=== PATIENT | male | born 1960 | race Caucasian/White ===

== ENCOUNTER 2017-10-05 19:10 | Emergency (ER) | payer BC ==
[2017-10-05 19:16] VITALS: BP 112/69; BMI 29.1
[2017-10-05] MEDS ORDERED: XYLOCAINE 1 % (PLAIN) ONE (19:39)
[2017-10-05] MEDS ORDERED: NS 1000 ML 1,000 ML ONE (20:03)
[2017-10-05] MEDS ORDERED: DILAUDID INJ ONE (20:04)
[2017-10-05] MEDS ORDERED: DILAUDID INJ IVP ONE (20:04)
--- NOTE | 2017-10-05 20:05 | DR.GENAD ---
HPI - PCP Primary Care Physician: Adan - Complaint/Symptoms Chief Complaint Doctors Comments: Patient presented to the ED with complaint of having a kidney stone and unable to pass. He has a history of recurrent stones since the age of [age]. He states that he dribbles when attempting to urinate. PMY of heart disease stents 1-2 months ago ([place]) and 3-4 stents 4-5 years ago or longer. He takes low dose aspirin and Effient daily Chief Complaint:: Kidney Stone Self Treatment fo Chief Complaint: Flomax, only takes when he gets a kidney stone - Source History Provided: Patient - Mode of Arrival Mode of Arrival: Ambulatory - Timing Onset of Chief Complaint: 09/03/17 PMH - PMH Past Medical History: Yes Past Medical History: Kidney Stones, [place] Past Surgical History: Yes Past Surgical History Comment: x4 stents - Family History History of Family Medical Conditions: No - Social History Does patient currently use any type of tobacco product: Yes Have you used tobacco products in the last 12 months: Yes Type of Tobacco Use: Cigarettes Does any household member use tobacco: No Alcohol Use: None Do you use any recreational Drugs:: No Lives With: Alone Lives Where: Home - infectious screening In the last 2 months have you had wt loss of >10#?: NO Have you had fever, night sweats or hemotysis?: No Have you traveled outside the country in the last 6 months?: No Isolation: Standard ROS - Review of Systems Eyes: No Symptoms Reported ENTM: No Symptoms Reported Respiratoy: No Symptoms Reported Cardiovascular: No Symptoms Reported Gastrointestinal/Abdominal: No Symptoms Reported Genitourinary: No Symptoms Reported Neurological: No Symptoms Reported Musculoskeletal: No Symptoms Reported Integumentary: No Symptoms Reported Hematologic/Lymphatic: No Symptoms Reported Endocrine: No Symptoms Reported Psychiatric: No Symptoms Reported All Other Systems: Reviewed and Negative PE - Vital Signs Vitals: Temperature 97.3 F Pulse Rate 88 Respiratory Rate 18 Blood Pressure 112/69 O2 Sat by Pulse Oximetry 97 - General Limitations: No Limitations General Appearance: Alert - Head Head Exam: Normal Inspection, Atraumatic - Eyes Eye exam: Normal Appearance, PERRL, EOMI - ENT ENT Exam: Normal Exam, Normal Oropharynx External Ear Exam: Normal External Inspection TM/Canal Exam: Bilateral Normal Nose Exam: Normal Nose Exam Mouth Exam: Normal Inspection, Drooling Throat Exam: Normal Inspection, Tonsillar Erythema - Neck Neck Exam: Normal Inspection, Full ROM - Chest Chest Inspection: Normal Inspection, Symmetric Chest Wall Rise - Respiratory Respiratory Exam: Normal Lung Sounds Bilat, Accessory Muscle Use Respiratory Exam: Bilateral Clear to Auscultation - Cardiovascular Cardiovascular Exam: Regular Rate, Normal Rhythm - Abdominal Exam Abdominal Exam: Normal Inspection, Normal Bowel Sounds Abdominal Tenderness: negative: RUQ, RLQ, LUQ, LLQ, Epigastrium, Suprapubic, Diffuse, Mild, Moderate, Severe, Other - Extremities Extremities Exam: Normal Inspection, Full ROM - Back Back Exam: Normal Inspection, Full ROM - Neurologic Neurological Exam: Alert, Oriented X3, CN II-XII Intact - Psychiatric Psychiatric Exam: Normal Affect, Normal Mood - Skin Skin Exam: Warm, Dry, Intact Course - Reevaluation 1st: Unchanged - Consultation Called: 20:50 (Dr Lopez agreed to accept for further evaluation) - Diagnosis Discharge Problem: probable ureteral stone - Discharge Plan Condition: Stable - Follow ups/Referrals Follow ups/Referrals: GRETCHEN DOZIER [Primary Care Provider] - 3 days - Instructions
[2017-10-05] MEDS ORDERED: XYLOCAINE VISCOUS ONE (20:14)
[2017-10-05] MEDS ORDERED: NS 1000 ML 1,000 ML IV SCH (21:00)
== END 2017-10-05 23:49 | disposition short-term general hospital (02) ==
LOC: ER 19:22
DX: R30.0 Dysuria (principal)
CPT/HCPCS: 96365; 96367; 96372; 96374; 99282; 99283; A4222; J2001